=== PATIENT | female | born 1985 | race Caucasian/White ===

== ENCOUNTER 2025-02-22 16:15 | Outpatient (RCR) | payer BC, SELFPAY ==
--- NOTE | 2025-01-22 12:57 | PTOPEVAL1 ---
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 Started taking Celebrex last week, minor and temporary change in pain levels. Pain is described as achy at rest, throbbing with movement, stabbing when carrying or lifting a weighted object (pans, mugs, heavy plates), sore to the touch 100% of the time the last couple months. Pain increased when straightening elbow, worsens throughout the day, and at the end of day, elbow muscles feel fatigued, weak and very irritable, she would often notice swelling as well. Pain wakes her up at night when she bend the elbow or suddenly roll and lay on her R side. Wears an elbow support daily at work. Assessment PT Clinical Summary Pt presents to therapy with c/o constant pain around the R elbow area sometimes lateral > medial aspect; noted tenderness and weakness and swelling at end of the day after doing repeated lifting, gripping and weighted objects. 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 Based on her UEFS score of 60%, the discomfort greatly limited her ability to perform IADLs and ultimately impact her performance at work as well. She may benefit from skilled PT intervention to manage pain, acquire knowledge on how to help recover and prevent worsening or further injuries. Plan of Care Interventions Electrical Stimulation,Hot Pack/Cold Pack,Manual Therapy,Patient/Caregiver Education,Therapeutic Activities,Therapeutic Exercise,Ultrasound,Other Other Interventions Dry Needling PT Services Indicated Yes Treatment Frequency and 1-2x/wk x 10 visits Duration These treatments will address the objective and functional deficits as defined above. The patient will be advanced safely and appropriately in order for the patient to progress towards his/her prior level of function. Additional exercises will be introduced and as well as a comprehensive home exercise program upon discharge, if needed, ?to ensure carryover of functional gains achieved in the clinic. This treatment plan has been reviewed and agreement upon by the patient.
--- NOTE | 2025-01-22 12:57 | OPREHPOC ---
Outpatient Therapy Plan of Care This is a Multidisciplinary Plan of Care that may contain components documented by all disciplines (PT, OT, and ST.) PT Problem 1 PT Problem #1 Knowledge Deficit PT Goal 1 Goal / Goal Update 1. Pt will demo good understanding of diagnosis and prognosis. 2. Pt will perform HEPs to improve strength and elbow stability. Target Visit 6 PT Problem 2 PT Problem #2 Pain PT Goal 1 Goal / Goal Update 1. Pt will report 4/10 pain at worst or when performing lifting and moving weighted objects with R UE. 2. Pt will report complete resolution or 0/10 pain level with all RUE movements Target Visit 10 PT Problem 3 PT Problem #3 Impaired Strength PT Goal 1 Goal / Goal Update Pt will demo at least 4/5 or more to BUE in order to perform tasks without difficulty. Target Visit 10
--- NOTE | 2025-02-28 11:59 | PCPTNOTE ---
Pt. called to cancel today's appointment stating she has a scheduling conflict.
== END 2025-04-18 23:59 | disposition home or self-care (01) ==
LOC: ANHPT 16:15
PROVIDERS: PCP Physician Assistant Medical; Visit Provider Physician Assistant Medical
DX: M77.8 Other enthesopathies, not elsewhere classified (principal)
CPT/HCPCS: 97035; 97110; 97140; 97161

== ENCOUNTER 2025-02-28 09:04 | Outpatient (CLI) | payer BC, SELFPAY ==
--- NOTE | ~2025-02-28 | MR_ITS ---
MRI of the right shoulder Technique: Axial proton-density fat-sat images, coronal proton density fat-sat and T2 fat-sat images, and sagittal T1-weighted and T2 fat-sat images were acquired. Clinical History: Pain Findings: AC joint intact. Coracoclavicular, coracoacromial, and coracohumeral ligaments are intact. Supraspinatus and infraspinatus tendons are intact, without partial or full-thickness tear. Subscapul alhaji tendon intact. There is mild rotator cuff tendinosis. Tendon of long head of the biceps is intac t. No labral tear evident. Inferior glenohumeral ligament is intact. No degenerative change or effusion of the glenohumeral join t. No fluid distention of the subacromial/subdeltoid bursa. No muscle atrophy or edema. Impression: No significant abnormality seen. Reviewed, dictated and finalized at [facility]. Impression: No significant abnormality seen.
== END 2025-02-28 09:05 | disposition home or self-care (01) ==
PROVIDERS: PCP Physician Assistant Medical; Visit Provider Physician Assistant Medical
DX: M25.511 Pain in right shoulder (principal)
CPT/HCPCS: 73221